=== PATIENT | female | born 1970 | race African-American/Black ===

== ENCOUNTER 2016-09-20 21:17 | Emergency (ER) | payer OTHER ==
[~2016-09-20] VITALS: Ht 167.6 cm; Wt 82.6 kg
[~2016-09-20 21:17] MED LIST: ACET325T53 PO; AMIN30LI2 PO; ASCO500C16 PO; BISA10SU61 RC; CRAN425C PO; DOCU-25 PO; ENOX40DI SUBCUT; IPRA3AMP HHN; IPRA3AMP IH; LACT1CAP72 PO; MAGN400O6 PO; MULT-213 PO; NA P133E RC; PHEN100C4 PO; PHEN60TA11 PO; TRAM50TA92 PO; VORI200T PO; ZINC220C6 PO; ZOLP5TAB2 PO
--- NOTE | 2016-09-20 21:45 | NUR ---
PT BIB PA WITH A C/O FEVER OPTOMETRIC COORDINATOR. PT IS PARAPLEGIC WITH BILATERAL HEEL PROTECTORS. PT HAS A DECUBITUS/PRESSURE SORE ON COCCYX. PT IS AA&O X4.
--- NOTE | 2016-09-20 22:50 | NUR ---
IN AND OUT CATH DONE AT THE BEDSIDE WITH ASSISTANCE FROM CHADWICK SHERWOOD. PT IS CURRENTLY ON HER PERIOD. SMALL BM NOTED. PT WAS CLEANED AND NEW DIAPER APPLIED. PT HAS OPEN DECUBE ON HER COCCYX.
[2016-09-20 23:14] LABS: APPEARANCE,URINE CLOUDY (CLEAR); BILIRUBIN,URINE NEGATIVE (NEGATIVE); BLOOD, URINE 3+ Ery/uL (NEGATIVE); COLOR,URINE YELLOW (YELLOW); KETONES,URINE NEGATIVE (NEGATIVE); LEUKOCYTE ESTERASE ,URINE 3+ (NEGATIVE); NITRITE, URINE POSITIVE (NEGATIVE); PROTEIN,URINE TRACE mg/dl (NEGATIVE); UGLUCOSE NEGATIVE (NEGATIVE); UROBILINOGEN,URINE 0.2 EU/dL (0.2)
[2016-09-20 23:18] LABS: RBC,URINE 21-50 /HPF (0-2)
[2016-09-20 23:19] LABS: ADD URINE CULTURE YES; BACTERIA,URINE 4+ /HPF (None Seen); SQUAMOUS EPITHELIAL CELL,UR Few /HPF (None Seen); WBC,URINE 81-100 /HPF (0-3)
[2016-09-21] MEDS ORDERED: CEFTRIAXONE 1 G VIAL IM ONE
[2016-09-21] MEDS ORDERED: CEFTRIAXONE 1 G VIAL ONE (00:22)
[2016-09-21] MEDS ORDERED: LIDOCAINE /MPF 1% VIAL 5 ML VIAL ONE (00:22)
--- NOTE | 2016-09-21 00:31 | NUR ---
Patient discharged to home in stable condition. Written and verbal after care instructions given. Patient verbalizes understanding of instruction AND RX. PT LEFT VIA AMBULANCE. VSS.
[2016-09-21 00:32] VITALS: BP 91/58
== END 2016-09-21 00:33 | disposition home or self-care (01) ==
LOC: ER 21:18
DX: N39.0 Urinary tract infection, site not specified (principal); G40.909 Epilepsy, unspecified, not intractable, without status epilepticus; G82.20 Paraplegia, unspecified; G82.50 Quadriplegia, unspecified; G89.29 Other chronic pain; D64.9 Anemia, unspecified; F17.200 Nicotine dependence, unspecified, uncomplicated; F10.10 Alcohol abuse, uncomplicated; Z88.6 Allergy status to analgesic agent; Z98.890 Other specified postprocedural states
CPT/HCPCS: 71010-TC; 81000-TC; 87086-TC; 87186-TC; A4606; J0696; J3490; Z7610

== ENCOUNTER 2016-11-30 14:31 | Emergency (ER) | payer OTHER ==
[~2016-11-30] VITALS: Ht 167.6 cm; Wt 68.0 kg
--- NOTE | 2016-11-30 14:40 | NUR ---
JANE FROM [facility] FOR SEIZURE ACITIVTY. PATIENT RECEIVED AWAKE, HOWEVER CONFUSED. APPEARS IN MILD DISTRESS. RESPIRATION EVEN AND UNLABORED. SATING WELL ON ROOMAIR. PATIENT IS AFEBRILE. VSS. SEIZURE PRECATION OBSERVED
[2016-11-30] MEDS ORDERED: LORAZEPAM 1 MG TABLET PO ONE (15:30)
[2016-11-30 15:46] LABS: BASOPHILS # (AUTO) 0.1 /CMM (0.0-0.2); BASOPHILS % (AUTO) 1.7 % (0.0-2.0); EOSINOPHILS % (AUTO) 0.3 % (0.0-6.0); HEMATOCRIT 38 % (33-45); HEMOGLOBIN 12.8 g/dL (11.5-14.8); LYMPHOCYTES # (AUTO) 1.6 /CMM (0.8-4.8); LYMPHOCYTES % (AUTO) 20.9 % (20.0-44.0); MEAN CORPUSCULAR HEMOGLOBIN 31 PG (26.0-33.0); MEAN CORPUSCULAR HGB CONC 33 g/dl (31.0-36.0); MEAN CORPUSCULAR VOLUME 94 fL (82-100); MONOCYTES # (AUTO) 0.2 /CMM (0.1-1.30); NEUTROPHILS # (AUTO) 5.9 /CMM (1.8-8.9); NEUTROPHILS % (AUTO) 74.1 % (43.0-81.0); PLATELET COUNT (AUTO) 258 /CMM (150-450); RDW COEFFICIENT OF VARIATION 13.2 (11.5-15.0); RED BLOOD CELL COUNT(AUTO) 4.09 MIL/uL (4.0-5.2); WHITE BLOOD COUNT (AUTO) 7.8 K/uL (4.3-11.0)
[2016-11-30] MEDS ORDERED: LORAZEPAM 1 MG TABLET ONE (16:01)
[2016-11-30 16:02] LABS: CALCIUM, SERUM 8.5 mg/dL (8.5-10.1); CREATININE 0.5 mg/dL (0.6-1.3); POTASSIUM 3.7 mmol/L (3.5-5.1)
[2016-11-30 16:27] LABS: PHENYTOIN (DILANTIN) 13.1 ug/ml (10.0-20.0)
--- NOTE | 2016-11-30 17:03 | NUR ---
URINE SAMPLE OBTAINED, SENT.
[2016-11-30 17:07] LABS: APPEARANCE,URINE Slightly Cloudy (CLEAR); BILIRUBIN,URINE Negative (NEGATIVE); BLOOD, URINE Moderate Ery/uL (NEGATIVE); COLOR,URINE Yellow (YELLOW); KETONES,URINE Negative (NEGATIVE); LEUKOCYTE ESTERASE ,URINE Moderate (NEGATIVE); NITRITE, URINE Positive (NEGATIVE); PH,URINE 5.5 (5.0-8.0); PROTEIN,URINE Negative (NEGATIVE); UGLUCOSE Negative (NEGATIVE); UROBILINOGEN,URINE 0.2 EU/dL (0.2)
[2016-11-30 17:14] LABS: BACTERIA,URINE Many /HPF (None Seen); SQUAMOUS EPITHELIAL CELL,UR Few /HPF (None Seen); WBC,URINE 81-100 /HPF (0-3)
[2016-11-30] MEDS ORDERED: CEFTRIAXONE 1GM BAG (ER ONLY) 50 ML IV ONE (18:30)
[2016-11-30] MEDS ORDERED: CEFTRIAXONE 1GM BAG (ER ONLY) 1 GM/50 ML PIGGYBACK IV ONE (18:30)
--- NOTE | 2016-11-30 18:36 | NUR ---
CALLED [facility] FOR TRANSPORT BACK TO [facility], ETA 30- 45 MIN
--- NOTE | 2016-11-30 18:44 | NUR ---
RT WRIST #20 IV ACCESS . FOR IV MEDS ADMINISTERED
[2016-11-30 18:45] VITALS: BP 100/41
--- NOTE | 2016-11-30 19:02 | NUR ---
IV removed. Catheter intact and site benign. Pressure and 4x4 applied to site. No bleeding noted. report given to emt med response. vss. pt aware of transfer back to [facility]. pt transfered via gurney with all personal belongings. med response took over care. all d/c paper provided to med response
== END 2016-11-30 19:06 | disposition home or self-care (01) ==
LOC: ER 14:32
DX: G40.909 Epilepsy, unspecified, not intractable, without status epilepticus (principal); N39.0 Urinary tract infection, site not specified; G82.50 Quadriplegia, unspecified; F17.200 Nicotine dependence, unspecified, uncomplicated; G89.29 Other chronic pain; Z88.5 Allergy status to narcotic agent
CPT/HCPCS: 36415; 80048-TC; 80185-TC; 81000-TC; 85025-TC; 87086-TC; 87186-TC; A4606; J0696; Z7610

== ENCOUNTER 2017-01-06 12:26 | Emergency (ER) | payer MEDICAID, OTHER ==
[~2017-01-06] VITALS: Ht 157.5 cm; Wt 77.1 kg
--- NOTE | 2017-01-06 12:45 | NUR ---
[facility]: S/P WITNESSED SEIZURE IN AM -20 SEC. PT AAOX3. VSS. BED BOUND. SEEN BY MD FOR EVAL. SAFETY AND COMFORT MEASURES PROVIDED. WILL MONITOR.
[2017-01-06] MEDS ORDERED: LEVETIRACETAM (500MG) 1,000 MG in IV NS 0.9% 100 ML IV STA (13:15)
[2017-01-06] MEDS ORDERED: LORAZEPAM INJ 2 MG/ML VIAL IV STA (13:15)
[2017-01-06] MEDS ORDERED: LORAZEPAM INJ 2 MG/ML VIAL ONE (13:16)
--- NOTE | 2017-01-06 13:16 | NUR ---
PT NOTED TO BE SEIZING. SZ PRECUATIONS MAINTAINED. MADE AWARE. PT MEDICATED ORDERED.
[2017-01-06 13:21] LABS: BASOPHILS % (AUTO) 0.3 % (0.0-2.0); EOSINOPHILS % (AUTO) 0.7 % (0.0-6.0); HEMATOCRIT 41 % (33-45); HEMOGLOBIN 13.8 g/dL (11.5-14.8); LYMPHOCYTES # (AUTO) 1.3 /CMM (0.8-4.8); LYMPHOCYTES % (AUTO) 19.5 % (20.0-44.0); MEAN CORPUSCULAR HEMOGLOBIN 32 PG (26.0-33.0); MEAN CORPUSCULAR HGB CONC 34 g/dl (31.0-36.0); MEAN CORPUSCULAR VOLUME 95 fL (82-100); MONOCYTES # (AUTO) 0.1 /CMM (0.1-1.30); MONOCYTES % (AUTO) 2.1 % (2.0-12.0); NEUTROPHILS # (AUTO) 5.2 /CMM (1.8-8.9); NEUTROPHILS % (AUTO) 77.4 % (43.0-81.0); PLATELET COUNT (AUTO) 252 /CMM (150-450); RDW COEFFICIENT OF VARIATION 13.9 (11.5-15.0); RED BLOOD CELL COUNT(AUTO) 4.32 MIL/uL (4.0-5.2); WHITE BLOOD COUNT (AUTO) 6.7 K/uL (4.3-11.0)
[2017-01-06 13:32] LABS: ALBUMIN 3.3 g/dL (3.4-5.0); BILIRUBIN,TOTAL 0.2 mg/dL (0.2-1.0); CALCIUM, SERUM 9.3 mg/dL (8.5-10.1); CREATININE 0.4 mg/dL (0.6-1.3); POTASSIUM 3.9 mmol/L (3.5-5.1); TOTAL PROTEIN, SERUM 8.3 g/dL (6.4-8.2)
[2017-01-06] MEDS ORDERED: HYDR-552 PO ×2 (13:49)
[2017-01-06] MEDS ORDERED: MORP15TA PO (13:49)
[2017-01-06] MEDS ORDERED: CHOL100044 PO (13:49)
[2017-01-06] MEDS ORDERED: MULT-659 PO (13:49)
[2017-01-06 14:12] LABS: APPEARANCE,URINE SL CLOUDY (CLEAR); BILIRUBIN,URINE NEGATIVE (NEGATIVE); BLOOD, URINE NEGATIVE Ery/uL (NEGATIVE); COLOR,URINE YELLOW (YELLOW); KETONES,URINE NEGATIVE (NEGATIVE); LEUKOCYTE ESTERASE ,URINE NEGATIVE (NEGATIVE); NITRITE, URINE POSITIVE (NEGATIVE); PH,URINE 6.5 (5.0-8.0); PROTEIN,URINE NEGATIVE (NEGATIVE); UGLUCOSE NEGATIVE (NEGATIVE); UROBILINOGEN,URINE 0.2 EU/dL (0.2)
--- NOTE | 2017-01-06 14:30 | NUR ---
Patient is resting comfortably in bed with eyes closed. Easily aroused. VSS
[2017-01-06 14:43] LABS: BACTERIA,URINE Many /HPF (None Seen); RBC,URINE 0-2 /HPF (0-2)
[2017-01-06 14:44] LABS: SQUAMOUS EPITHELIAL CELL,UR Few /HPF (None Seen)
--- NOTE | 2017-01-06 15:19 | NUR ---
CALLED [facility] FOR BLS TRANSPORT BACK TO [facility]. ETA 40 MINUTES
--- NOTE | 2017-01-06 16:32 | NUR ---
[facility].
[2017-01-06 16:39] VITALS: BP 112/70
== END 2017-01-06 16:40 ==
LOC: ER 12:29
DX: G40.909 Epilepsy, unspecified, not intractable, without status epilepticus (principal); G89.29 Other chronic pain; G82.50 Quadriplegia, unspecified; F17.200 Nicotine dependence, unspecified, uncomplicated; R82.99 Other abnormal findings in urine; Z88.5 Allergy status to narcotic agent
CPT/HCPCS: 36415; 80053; 80185; 81001; 85025; 87077; 87086; 87186; 96365; 96375; 99285; A4606; J1953; J2060; J7030; Z7610; 81000-TC

== ENCOUNTER 2017-03-01 15:06 | Inpatient (IN) | payer MEDICAID, OTHER ==
[~2017-03-01] VITALS: Ht 170.2 cm; Wt 80.7 kg
[~2017-03-01 15:06] MED LIST changes: +CHOL100044 PO; -CRAN425C PO; +HYDR-552 PO; -IPRA3AMP HHN; -IPRA3AMP IH; -LACT1CAP72 PO; +MORP15TA PO; -MULT-213 PO; +MULT-659 PO; -NA P133E RC; -PHEN60TA11 PO; -TRAM50TA92 PO; -VORI200T PO; -ZOLP5TAB2 PO
[2017-03-01] MEDS ORDERED: PIPERACILLIN /TAZOBACTAM 3.375 G in IV D5W 50 ML IV ONE (15:30)
[2017-03-01] MEDS ORDERED: ACETAMINOPHEN ES 500 MG TABLET PO ONE (15:30)
[2017-03-01] MEDS ORDERED: VANCOMYCIN 1 GM in IV D5W 250 ML IV ONE (15:30)
[2017-03-01] MEDS ORDERED: IV NS 0.9% 1,000 ML BAG IV ONE (15:30)
[2017-03-01] MEDS ORDERED: ZIPRASIDONE MESYLATE 20 MG/VIAL VIAL IM ONE ×2 (16:00→17:02)
[2017-03-01] MEDS ORDERED: LORAZEPAM INJ 2 MG/ML VIAL IV ONE (16:00)
[2017-03-01 16:05] LABS: EOSINOPHILS % (AUTO) 0.3 % (0.0-6.0); HEMATOCRIT 40 % (33-45); HEMOGLOBIN 13.4 g/dL (11.5-14.8); LYMPHOCYTES # (AUTO) 1.3 /CMM (0.8-4.8); LYMPHOCYTES % (AUTO) 10.2 % (20.0-44.0); MEAN CORPUSCULAR HEMOGLOBIN 32 PG (26.0-33.0); MEAN CORPUSCULAR HGB CONC 34 g/dl (31.0-36.0); MEAN CORPUSCULAR VOLUME 95 fL (82-100); MONOCYTES # (AUTO) 0.4 /CMM (0.1-1.30); MONOCYTES % (AUTO) 2.9 % (2.0-12.0); NEUTROPHILS # (AUTO) 10.9 /CMM (1.8-8.9); NEUTROPHILS % (AUTO) 86.6 % (43.0-81.0); PLATELET COUNT (AUTO) 175 /CMM (150-450); RDW COEFFICIENT OF VARIATION 12.7 (11.5-15.0); WHITE BLOOD COUNT (AUTO) 12.5 K/uL (4.3-11.0)
[2017-03-01 16:15] LABS: CALCIUM, SERUM 9.1 mg/dL (8.5-10.1); CARBON DIOXIDE 26 mmol/L (21-32); CHLORIDE 102 mmol/L (98-107); CREATININE 0.6 mg/dL (0.6-1.3); GLUCOSE 113 mg/dL (74-106); SODIUM SERUM 137 mmol/L (136-145); UREA NITROGEN, BLOOD 12 mg/dL (7-18)
[2017-03-01] MEDS ORDERED: LEVE500T20 PO (16:16)
[2017-03-01] MEDS ORDERED: HYDR-3026 PO (16:16)
[2017-03-01] MEDS ORDERED: MORP15TA7 PO (16:16)
[2017-03-01] MEDS ORDERED: ARIP5TAB20 PO (16:16)
[2017-03-01 16:21] LABS: POTASSIUM 2.8 mmol/L (3.5-5.1)
[2017-03-01 16:23] LABS: TROPONIN I < 0.017 ng/mL (0.00-0.056)
[2017-03-01 16:24] LABS: INR 0.95 (0.87-1.13); PROTHROMBIN TIME 9.9 SECS (9.5-12.7)
[2017-03-01] MEDS ORDERED: AMIN887L PO (16:25)
[2017-03-01] MEDS ORDERED: POTASSIUM CHLORIDE 20 MEQ TAB.PRT.SR PO ONE ×2 (16:30→17:02)
[2017-03-01 16:31] LABS: ALANINE AMINOTRANSFERASE 54 U/L (12-78); ALKALINE PHOSPHATASE 85 U/L (46-116); ASPARTATE AMINOTRANSFERASE 36 U/L (15-37); BILIRUBIN,DIRECT 0.1 mg/dL (0.0-0.2); BILIRUBIN,TOTAL 0.3 mg/dL (0.2-1.0); TOTAL PROTEIN, SERUM 8.2 g/dL (6.4-8.2)
--- NOTE | 2017-03-01 16:32 | NUR ---
REGINE MIDLINE G 18
--- NOTE | 2017-03-01 16:42 | NUR ---
BED 118-2 TELE
[2017-03-01] MEDS ORDERED: MORPHINE SULFATE PO ×2 (16:45→17:11)
--- NOTE | 2017-03-01 16:51 | NUR ---
PT IS GETTING PIC LINE, ER WILL CALL WHEN READY FOR CT SCAN.
[2017-03-01] MEDS ORDERED: LORAZEPAM INJ 2 MG/ML VIAL ONE (17:02)
[2017-03-01] MEDS ORDERED: ACETAMINOPHEN ES 500 MG TABLET ONE (17:02)
--- NOTE | 2017-03-01 17:08 | NUR ---
REPORT GIVEN TO LESLIE VALENTINE FOR DIOGO
--- NOTE | 2017-03-01 17:24 | NUR ---
PT REFUSES IN/OUT MIN AT THIS TIME. WILL TRY AGAIN LATER
--- NOTE | 2017-03-01 17:38 | NUR ---
INFLUENZA SWAB R NARE OBTAINED, SEND TO LAB.
--- NOTE | 2017-03-01 17:58 | NUR ---
URINE SAMPLE SEND TO LAB
[2017-03-01] MEDS ORDERED: MAG HYDROX/AL HYDROX/SIMETH 30 ML UDC PO PRN (18:00)
[2017-03-01] MEDS ORDERED: BISACODYL SUPP (10 MG) 10 MG/SUPP.RECT SUPP.RECT RC PRN (18:00)
[2017-03-01] MEDS ORDERED: HYDROCODONE/APAP 5/325MG 1 EACH TABLET PO PRN (18:00)
[2017-03-01] MEDS ORDERED: ONDANSETRON HCL/PF 4 MG/2 ML VIAL IVP PRN (18:00)
[2017-03-01] MEDS ORDERED: PIPERACILLIN /TAZOBACTAM 4.5 G in IV D5W 50 ML IV SCH (18:00)
[2017-03-01] MEDS ORDERED: MAGNESIUM HYDROXIDE 30 ML UDC PO PRN (18:00)
[2017-03-01 18:18] LABS: APPEARANCE,URINE Clear (CLEAR); BILIRUBIN,URINE Negative (NEGATIVE); BLOOD, URINE Negative Ery/uL (NEGATIVE); COLOR,URINE Yellow (YELLOW); KETONES,URINE Negative (NEGATIVE); LEUKOCYTE ESTERASE ,URINE Small (NEGATIVE); NITRITE, URINE Positive (NEGATIVE); PROTEIN,URINE Trace mg/dl (NEGATIVE); UGLUCOSE Negative (NEGATIVE); UROBILINOGEN,URINE 0.2 EU/dL (0.2)
[2017-03-01] MEDS ORDERED: FEE PK DOSING 1 MIN EA MC ONE (18:23)
[2017-03-01 18:30] VITALS: BP 96/40
--- NOTE | 2017-03-01 18:45 | NUR ---
RN NOTE RECEIVED PT ON BED FROM ER, AOX3, CALM, NO DISTRESS, NO SOB, SKIN INTACT, SKIN HOT TO TOUCH FEVER 102, BP 96/40 MMHG, JOSR MIDLINE IN PLACE, IVF RUNNING FINISHING UP 3000ML BOLUS. PT HAD A BM, CLEANED, WILL WAIT FOR ADMITTING ORDERS AND ENDORSE TO TRAVELING STOREKEEPER NURSE.
[2017-03-01 18:57] LABS: BACTERIA,URINE Many /HPF (None Seen); RBC,URINE 0-2 /HPF (0-2); SQUAMOUS EPITHELIAL CELL,UR Few /HPF (None Seen)
[2017-03-01 18:58] LABS: URINE AMORPHOUS URATE Few /HPF (None Seen)
[2017-03-01] MEDS: POTASSIUM CL. PREMIX PERIPHER. 50 ML IV SCH ×2 (19:12→21:39)
[2017-03-01] MEDS: IV 1/2NS 1000 ML 1,000 ML IV PRN (19:14)
[2017-03-01] MEDS: PHENYTOIN EXTENDED RELEASE 100 MG CAPSULE PO SCH (19:22)
--- NOTE | 2017-03-01 19:30 | NUR ---
MS/RN NOTES: RECEIVED PATIENT IN BED W/ HOB ELEVATED. A/O X 3. PATIENT IS PARAPLEGIA. NO S/S OF RESPIRATORY DISTRESS NOTED. REGINE MIDLINE PATENT AND INTACT W/ NO S/S OF INFECTION/INFILTRATION NOTED. BILATERAL LOWER EXTREMITIES W/ HELL PROTECTORS ON. CALL LIGHT W/ IN REACH. ALL NEED MEET.
[2017-03-01 20:00] VITALS: BP 103/53
--- NOTE | 2017-03-01 20:00 | NUR ---
MS/RN NOTES: NOTED PT. W/ TEMP OF 102.9. COOLING MEASURES RENDERED. FAN ON. PATIENT REFUSED TO TAKE OFF HER BLANKETS. EXPLAINED THE IMPORTANCE BUT STILL REFUSED. PT. HAS TUSHAR. NORCO GIVEN PER ORDER. WILL RECHECK HER TEMP. CALL LIGHT W/ REACH. WILL CONTINUE TO MONITOR.
[2017-03-01] MEDS: LEVETIRACETAM (250 MG) 250 MG TABLET PO SCH (21:36)
[2017-03-01] MEDS: HYDROCODONE/APAP 5/325MG 1 EACH TABLET PO SCH (21:37)
[2017-03-01] MEDS: PROSTAT (PYXIS) 30 ML UDC PO SCH (22:00)
[2017-03-01] MEDS: PIPERACILLIN /TAZOBACTAM 3.375 G in IV D5W 50 ML IV SCH (23:55)
--- NOTE | 2017-03-02 | NUR ---
MS/RN NOTES: TEMP. RECHECKED 100.6. CONTINUE W/ COOLING MEASURES. ALL DUE MEDS GIVEN PER ORDER. WILL CONTINUE TO MONITOR.
[2017-03-02] MEDS: VANCOMYCIN 0.75 GM in IV D5W 250 ML IV SCH ×2 (00:52→08:34)
[2017-03-02 04:00] VITALS: BP 95/42
--- NOTE | 2017-03-02 07:00 | NUR ---
RN/MS NOTES: PT. IS RESTING IN BED W/ HOB ELEVATED . ALL DUE MEDS GIVEN AND TOLERATED WELL. HAS WOUND ON SACRUM PICTURES DONE. NOT IN ANY ACUTE RESPIRATORY DISTRESS NOTED. T 99.2. REPORT GIVEN TO NEXT SHIFT NURSE TO CONTINUE POC. CALL LIGHT W/ REACH.
--- NOTE | 2017-03-02 07:15 | NUR ---
RN INITIAL NOTES: REC'D PT AWAKE ON BED, NOT IN ANY DISTRESS, A/OX 3, ABLE TO MAKE NEEDS KNOWN, DENIES ANY PAIN/DISCOMFORT. HAS REGINE MIDLINE, PL, PATENT & INTACT W/ NO S/SX OF INFECTION/INFILTRATION NOTED, ON IVF 1/2NS X 75 CC/HR INFUSING WELL. PROVIDED COMFORT & SAFETY MEASURES. BED KEPT LOW & IN LOCKED POS. CALL LIGHT PLACED W/IN REACH. WILL CONTINUE TO MONITOR AND ATTEND PT'S NEEDS.
[2017-03-02] MEDS: PIPERACILLIN /TAZOBACTAM 3.375 G in IV D5W 50 ML IV SCH ×3 (07:54→17:11)
[2017-03-02 08:00] VITALS: BP 105/57
[2017-03-02] MEDS: ENOXAPARIN SODIUM 40 MG/0.4 ML DISP.SYRIN SQ SCH (08:37)
[2017-03-02] MEDS: ASCORBIC ACID 500 MG TABLET PO SCH (08:39)
[2017-03-02] MEDS: MULTIVIT, IRON, MIN NO. 8, FA 1 TAB PO SCH (08:39)
[2017-03-02] MEDS: HYDROCODONE/APAP 5/325MG 1 EACH TABLET PO SCH ×2 (08:39→21:44)
[2017-03-02] MEDS: PHENYTOIN EXTENDED RELEASE 100 MG CAPSULE PO SCH ×3 (08:39→17:11)
[2017-03-02] MEDS: ARIPIPRAZOLE 5 MG TABLET PO SCH (08:39)
[2017-03-02] MEDS: LEVETIRACETAM (250 MG) 250 MG TABLET PO SCH ×2 (08:40→21:44)
[2017-03-02] MEDS: Z GUARD REMEDY 2 OZ OINT TP PRN (08:40)
[2017-03-02 11:00] LABS: BASOPHILS % (AUTO) 0.3 % (0.0-2.0); EOSINOPHILS # (AUTO) 0.1 /CMM (0.0-0.7); EOSINOPHILS % (AUTO) 0.8 % (0.0-6.0); HEMATOCRIT 32 % (33-45); LYMPHOCYTES % (AUTO) 23.3 % (20.0-44.0); MEAN CORPUSCULAR HEMOGLOBIN 32 PG (26.0-33.0); MEAN CORPUSCULAR HGB CONC 34 g/dl (31.0-36.0); MEAN CORPUSCULAR VOLUME 94 fL (82-100); MONOCYTES # (AUTO) 0.6 /CMM (0.1-1.30); MONOCYTES % (AUTO) 6.8 % (2.0-12.0); NEUTROPHILS # (AUTO) 5.8 /CMM (1.8-8.9); NEUTROPHILS % (AUTO) 68.8 % (43.0-81.0); PLATELET COUNT (AUTO) 171 /CMM (150-450); RED BLOOD CELL COUNT(AUTO) 3.44 MIL/uL (4.0-5.2); WHITE BLOOD COUNT (AUTO) 8.4 K/uL (4.3-11.0)
--- NOTE | 2017-03-02 11:10 | NUR ---
RN NOTES: PT SEEN & EXAMINED BY DR. HERNANDEZ.
[2017-03-02 11:17] LABS: ALBUMIN 2.3 g/dL (3.4-5.0); BILIRUBIN,TOTAL 0.4 mg/dL (0.2-1.0); CALCIUM, SERUM 8.5 mg/dL (8.5-10.1); CREATININE 0.4 mg/dL (0.6-1.3); MAGNESIUM 1.6 mg/dL (1.8-2.4); PHOSPHORUS 2.5 mg/dL (2.5-4.9); TOTAL PROTEIN, SERUM 6.7 g/dL (6.4-8.2)
[2017-03-02 11:45] LABS: POTASSIUM 2.7 mmol/L (3.5-5.1)
[2017-03-02] MEDS: POTASSIUM CL. PREMIX PERIPHER. 50 ML IV SCH ×8 (12:43→21:45)
[2017-03-02] MEDS: IV 1/2NS 1000 ML 1,000 ML IV PRN (13:28)
[2017-03-02 16:00] VITALS: BP 95/51
--- NOTE | 2017-03-02 16:00 | NUR ---
RN NOTES: PT FEBRILE, 103`F. REFERRED TO DR. HERNANDEZ. PER , ID ALREADY NOTIFIED. ORDERED TO DO BLOOD CULTURE X2.
[2017-03-02] MEDS: ACETAMINOPHEN 325 MG TABLET PO PRN (17:11)
[2017-03-02] MEDS ORDERED: MINERAL OIL 133 ML (PYXIS) 1 EA ENEMA RC ONE (18:30)
[2017-03-02] MEDS: DOCUSATE SODIUM 100 MG CAPSULE PO SCH (18:30)
[2017-03-02] MEDS: VANCOMYCIN 1 GM in IV D5W 250 ML IV SCH (18:51)
--- NOTE | 2017-03-02 19:00 | NUR ---
RN CLOSING NOTES: PT STILL IS FEBRILE, WARM TO TOUCH. COOLING MEASURES PROVIDED. PT SEEN & EXAMINED BY BRANDAN FRAGA W/ ORDERS MADE & CARRIED OUT. BLADDER SCAN DONE, NOTED >300ML URINE. MIN CATHETER INSERTED BUT PT ABLE TO URINATE. BLADDER SCAN DONE AGAIN W/ <100ML URINE. MALCOLMA MADE AWARE W/ ORDERS NO NEED TO INSERT FC AT THIS TIME. BRANDAN FRAGA MADE AWARE ALSO THAT PT HAD 4X BM (LOOSE, WATERY). PT REFUSING TO TAKE COLACE & ENEMA ORDERED. REGINE MIDLINE, PL, KEPT PATENT & INTACT W/ NO S/SX OF INFECTION/INFILTRATION NOTED, ON IVF 1/2NS X 75 CC/HR INFUSING WELL. KEPT WELL RESTED. NEEDS ATTENDED. BED KEPT LOW & IN LOCKED POS. CALL LIGHT PLACED W/IN REACH. ENDORSED TO PM RN FOR DIOGO AND TO GIVE LAST BAG OF POTASSIUM.
[2017-03-02 20:00] VITALS: BP 82/51
[2017-03-02] MEDS: MEROPENEM 500 MG in IV NS 0.9% 50 ML IV SCH (20:08)
[2017-03-02] MEDS: hydrOXYzine PAMOATE 25 MG CAPSULE PO PRN (21:44)
[2017-03-02] MEDS: PROSTAT (PYXIS) 30 ML UDC PO SCH (21:46)
[2017-03-02] MEDS ORDERED: BISACODYL (5 MG) 5 MG TABLET.DR PO PRN (22:00)
[2017-03-03] MEDS: VANCOMYCIN 1 GM in IV D5W 250 ML IV SCH ×3 (01:23→18:50)
[2017-03-03] MEDS: MEROPENEM 500 MG in IV NS 0.9% 50 ML IV SCH ×3 (04:00→20:43)
--- NOTE | 2017-03-03 07:20 | NUR ---
RN INITIAL NOTES: REC'D PT AWAKE ON BED, NOT IN ANY DISTRESS, A/OX 3, ABLE TO MAKE NEEDS KNOWN, DENIES ANY PAIN/DISCOMFORT. HAS REGINE MIDLINE, PL, PATENT & INTACT W/ NO S/SX OF INFECTION/INFILTRATION NOTED, ON IVF 1/2NS X 75 CC/HR INFUSING WELL. PT VERBALIZED THAT SHE IS STILL HAVING DIARRHEA. PROVIDED COMFORT & SAFETY MEASURES. BED KEPT LOW & IN LOCKED POS. CALL LIGHT PLACED W/IN REACH. WILL CONTINUE TO MONITOR AND ATTEND PT'S NEEDS.
[2017-03-03 08:00] VITALS: BP 93/59
[2017-03-03 08:48] VITALS: BP 93/54
[2017-03-03] MEDS: DOCUSATE SODIUM 100 MG CAPSULE PO SCH ×2 (09:00→17:00)
[2017-03-03] MEDS: PHENYTOIN EXTENDED RELEASE 100 MG CAPSULE PO SCH ×3 (09:32→17:24)
[2017-03-03] MEDS: LEVETIRACETAM (250 MG) 250 MG TABLET PO SCH ×2 (09:32→20:44)
[2017-03-03] MEDS: ASCORBIC ACID 500 MG TABLET PO SCH (09:32)
[2017-03-03] MEDS: ARIPIPRAZOLE 5 MG TABLET PO SCH (09:32)
[2017-03-03] MEDS: MULTIVIT, IRON, MIN NO. 8, FA 1 TAB PO SCH (09:33)
[2017-03-03] MEDS: HYDROCODONE/APAP 5/325MG 1 EACH TABLET PO SCH ×2 (09:33→20:44)
[2017-03-03] MEDS: ENOXAPARIN SODIUM 40 MG/0.4 ML DISP.SYRIN SQ SCH (09:39)
[2017-03-03] MEDS: Z GUARD REMEDY 2 OZ OINT TP PRN (09:39)
[2017-03-03 11:15] LABS: CALCIUM, SERUM 8.8 mg/dL (8.5-10.1); CREATININE 0.5 mg/dL (0.6-1.3); POTASSIUM 3.1 mmol/L (3.5-5.1)
--- NOTE | 2017-03-03 12:53 | NUR ---
WOUND CARE CONSULT PATIENT SEEN AND SKIN INTEGRITY ASSESSMENT DONE PATIENT PRESENTS WITH HEALING STAGE 4 PRESSURE ULCER AND LEFT ANKLE SCARRING BOTH POA. SEE INSTALLATION SPECIALIST ASSESSMENT IN [facility] FOR TODAY ALONG WITH ALL RECOMMENDATIONS. PATIENT ON ISOFLEX LOW AIRLOSS SPECIALTY BED FOR [facility], RECOMMEND CONTINUE TURNING Q 2 HOURS PATIENT CONDITION PERMITS, BILATERAL HEEL FLOATING AND OFF LOADING OF THE ANKLES. CONTINUE Z GUARD FOR SKIN/MOISTURE MANAGEMENT. PATIENT WITH CURRENT BILL AT 13. ALL SKIN MANAGEMENT DISCUSSED WITH NURSING AT THE BEDSIDE AND ALSO WITH PATIENT AND PATIENT IN AGREEMENT. MD IN AGREEMENT WITH PLAN OF CARE. Addendum: 03/03/17 at 1307 by KONG DELACRUZ WNDNU INSTALLATION SPECIALIST ADDENDUM RECOMMEND SURGICAL CONSULT FOR HEALING STAGE 4 PRESSURE ULCER POA
[2017-03-03] MEDS ORDERED: HYDROGEL DRESSING 90 GM TUBE TP PRN ×2 (13:00)
[2017-03-03] MEDS ORDERED: POTASSIUM CHLORIDE 20 MEQ TAB.PRT.SR PO ONE (13:00)
[2017-03-03] MEDS: HYDROGEL DRESSING 90 GM TUBE TP SCH (13:29)
[2017-03-03] MEDS: POTASSIUM CHLORIDE 20 MEQ TAB.PRT.SR PO SCH ×2 (15:54→17:24)
[2017-03-03 16:00] VITALS: BP 91/59
[2017-03-03] MEDS ORDERED: NA PHOS,M-B/NA PHOS,DI-BA 1 EA ENEMA RC ONE (17:30)
--- NOTE | 2017-03-03 17:30 | NUR ---
RN NOTES: PT SEEN & EXAMINED BY BRANDAN FRAGA W/ ORDERS TO GIVE FLEET ENEMA X1. MANAGER GARDEN FURTHER EXPLAINED THE IMPORTANCE OF THIS MEDICATION TO THE PT PT WAS REFUSING THIS BEFORE. PT VERBALIZED UNDERSTANDING.
--- NOTE | 2017-03-03 19:09 | NUR ---
RN CLOSING NOTES: NO ACUTE CHANGES NOTED W/IN SHIFT. PT STILL IS AFEBRILE. PT TOLERATED ROOM AIR W/ NO SOB. FLEET ENEMA GIVEN X1 ORDERED. REGINE MIDLINE, PL, KEPT PATENT & INTACT W/ NO S/SX OF INFECTION/INFILTRATION NOTED, ON IVF 1/2NS X 75 CC/HR INFUSING WELL. KEPT WELL RESTED. NEEDS ATTENDED. BED KEPT LOW & IN LOCKED POS. CALL LIGHT PLACED W/IN REACH. WILL ENDORSE TO PM RN FOR DIOGO.
--- NOTE | 2017-03-03 19:35 | NUR ---
MS RN INITIAL NOTE PT RECEIVED IN BED. A/O X3 AND ABLE TO MAKE NEEDS KNOWN. ON ROOM AIR AND SATURATING 95%. BREATHING EVEN, REGULAR AND UNLABORED. IV REGINE MIDLINE PATENT, DRY AND FLUSHING WELL WITH FLUIDS RUNNING. CALL LIGHT WITHIN REACH AT ALL TIMES. WILL CONTINUE TO MONITOR.
[2017-03-03 20:00] VITALS: BP 101/67
[2017-03-03] MEDS: hydrOXYzine PAMOATE 25 MG CAPSULE PO PRN (20:45)
[2017-03-03] MEDS: PROSTAT (PYXIS) 30 ML UDC PO SCH (22:00)
[2017-03-04] MEDS: IV 1/2NS 1000 ML 1,000 ML IV PRN ×2 (01:04→18:25)
[2017-03-04] MEDS: VANCOMYCIN 1 GM in IV D5W 250 ML IV SCH ×3 (01:05→17:27)
[2017-03-04] MEDS: MEROPENEM 500 MG in IV NS 0.9% 50 ML IV SCH ×3 (03:32→20:28)
[2017-03-04 04:00] VITALS: BP 97/61
[2017-03-04 07:01] LABS: CREATININE 0.4 mg/dL (0.6-1.3); POTASSIUM 3.8 mmol/L (3.5-5.1)
--- NOTE | 2017-03-04 07:06 | NUR ---
MS RN CLOSING NOTE NO ACUTE DISTRESS NOTED. ON ROOM AIR. ALL NEEDS ATTENDED TO AND MET PROMPTLY. KEPT CLEAN AND DRY. IV IN PLACE WITH FLUIDS RUNNING. ALL DUE MEDS GIVEN ORDERED AND WELL TOLERATED. CALL LIGHT WITHIN REACH. WILL ENDORSE TO NEXT SHIFT FOR CONTINUITY OF CARE.
--- NOTE | 2017-03-04 07:18 | NUR ---
RN INITIAL NOTES: REC'D PT ASLEEP ON BED, NOT IN ANY DISTRESS, A/OX 3, ABLE TO MAKE NEEDS KNOWN, DENIES ANY PAIN/DISCOMFORT. HAS REGINE MIDLINE, PL, PATENT & INTACT W/ NO S/SX OF INFECTION/INFILTRATION NOTED, ON IVF 1/2NS X 75 CC/HR INFUSING WELL. PROVIDED COMFORT & SAFETY MEASURES. BED KEPT LOW & IN LOCKED POS. CALL LIGHT PLACED W/IN REACH. WILL CONTINUE TO MONITOR AND ATTEND PT'S NEEDS.
[2017-03-04 08:00] VITALS: BP 103/55
[2017-03-04] MEDS: LEVETIRACETAM (250 MG) 250 MG TABLET PO SCH ×2 (08:45→20:28)
[2017-03-04] MEDS: DOCUSATE SODIUM 100 MG CAPSULE PO SCH ×2 (08:45→17:27)
[2017-03-04] MEDS: ARIPIPRAZOLE 5 MG TABLET PO SCH (08:45)
[2017-03-04] MEDS: MULTIVIT, IRON, MIN NO. 8, FA 1 TAB PO SCH (08:45)
[2017-03-04] MEDS: ASCORBIC ACID 500 MG TABLET PO SCH (08:45)
[2017-03-04] MEDS: PHENYTOIN EXTENDED RELEASE 100 MG CAPSULE PO SCH ×3 (08:45→17:27)
[2017-03-04] MEDS: Z GUARD REMEDY 2 OZ OINT TP PRN (08:46)
[2017-03-04] MEDS: HYDROGEL DRESSING 90 GM TUBE TP SCH (08:46)
[2017-03-04] MEDS: HYDROCODONE/APAP 5/325MG 1 EACH TABLET PO SCH ×2 (08:46→20:28)
[2017-03-04] MEDS: ENOXAPARIN SODIUM 40 MG/0.4 ML DISP.SYRIN SQ SCH (08:48)
--- NOTE | 2017-03-04 10:15 | NUR ---
RN NOTES: PT SEEN & EXAMINED BY DR. HERNANDEZ.
[2017-03-04 14:00] VITALS: BP 90/52
[2017-03-04] MEDS: HYDROCODONE/APAP 5/325MG 1 EACH TABLET PO PRN (14:47)
[2017-03-04 16:00] VITALS: BP 90/52
--- NOTE | 2017-03-04 17:04 | NUR ---
RN NOTES: PHILLY GIPSON MADE AWARE OF TEMP 101 W/ ORDERS TO DO REPEAT BLOOD CULTURE X2. PT REFUSED COOLING MEASURES DESPITE OF EXPLANATION.
--- NOTE | 2017-03-04 17:49 | NUR ---
RN NOTES: PT SEEN & EXAMINED BY BRANDAN FRAGA.
--- NOTE | 2017-03-04 18:37 | NUR ---
RN NOTES: SPOKE W/ THE PT RE: URINE COLLECTION. PER PT SHE CAN FEEL THAT SHE IS URINATING BUT DOESN'T HAVE THE URGE. ASKED IF RN CAN INSERT A STRAIGHT FC TO COLLECT FOR URINE, SHE VERBALIZED THAT SHE JUST URINATED AND DOESN'T WANT TO BE CHANGE OR DO STRAIGHT FC AT THIS TIME.
--- NOTE | 2017-03-04 19:30 | NUR ---
MS RN INITIAL NOTE PT RECEIVED IN BED. A/O X3 AND ABLE TO MAKE NEEDS KNOWN. ON ROOM AIR AND SATURATING 96%. BREATHING EVEN, REGULAR AND UNLABORED. IV REGINE MIDLINE PATENT, DRY AND FLUSHING WELL WITH FLUIDS RUNNING. INFORMED PT OF THE NEED TO COLLECT URINE FROM HER PER MD ORDER AND SHE VERBALIZED TO DO IT LATER BECAUSE SHE DOES NOT NEED TO URINATE AT THIS TIME. PT ENCOURAGED TO USE CALL LIGHT WHEN IN NEED TO URINATE. CALL LIGHT WITHIN REACH AT ALL TIMES. WILL CONTINUE TO MONITOR.
[2017-03-04 20:00] VITALS: BP 94/50
[2017-03-04] MEDS: hydrOXYzine PAMOATE 25 MG CAPSULE PO PRN (20:28)
[2017-03-04] MEDS: PROSTAT (PYXIS) 30 ML UDC PO SCH (21:48)
--- NOTE | 2017-03-04 21:48 | NUR ---
MS RN NOTE PT REFUSED PROSTAT YESTERDAY AND TONIGHT. EXPLAINED RISKS AND BENEFITS AND PT STILL REFUSED SAYING SHE DOESN'T LIKE THE TASTE AND DOESN'T WANT IT. WILL ENDORSE TO NEXT SHIFT.
[2017-03-05] MEDS: VANCOMYCIN 1 GM in IV D5W 250 ML IV SCH ×3 (01:11→16:43)
[2017-03-05 04:00] VITALS: BP 90/52
[2017-03-05] MEDS: MEROPENEM 500 MG in IV NS 0.9% 50 ML IV SCH ×3 (04:07→20:48)
--- NOTE | 2017-03-05 06:48 | NUR ---
MS RN CLOSING NOTE PT REMAINED STABLE DURING SHIFT. AFEBRILE THIS MORNING AND NO C/O DISCOMFORT NOTED. KEPT CLEAN AND DRY AT ALL TIMES. URINE COLLECTED ORDERED AND PICKED UP BY LAB. IV IN PLACE. CALL LIGHT WITHIN REACH. WILL ENDORSE TO NEXT SHIFT FOR CONTINUITY OF CARE.
--- NOTE | 2017-03-05 07:00 | NUR ---
RN OPEN NOTES RECEIVED REPORT FROM SUPERVISOR ASBESTOS REMOVAL NURSE. WILL CONTINUE TO MONITOR AND ASSESS PATIENT THROUGH OUT MY SHIFT
[2017-03-05 08:00] VITALS: BP_SYST 140; BP_SYST 87; BP_SYST 88; BP_DIAS 100; BP_DIAS 56; BP_DIAS 59
[2017-03-05] MEDS: DOCUSATE SODIUM 100 MG CAPSULE PO SCH ×2 (08:08→15:59)
[2017-03-05] MEDS: LEVETIRACETAM (250 MG) 250 MG TABLET PO SCH ×2 (08:08→20:59)
[2017-03-05] MEDS: HYDROCODONE/APAP 5/325MG 1 EACH TABLET PO SCH ×2 (08:08→20:59)
[2017-03-05] MEDS: PHENYTOIN EXTENDED RELEASE 100 MG CAPSULE PO SCH ×3 (08:09→15:59)
[2017-03-05] MEDS: MULTIVIT, IRON, MIN NO. 8, FA 1 TAB PO SCH (08:09)
[2017-03-05] MEDS: ARIPIPRAZOLE 5 MG TABLET PO SCH (08:09)
[2017-03-05] MEDS: ASCORBIC ACID 500 MG TABLET PO SCH (08:09)
[2017-03-05] MEDS: HYDROGEL DRESSING 90 GM TUBE TP SCH (08:10)
[2017-03-05] MEDS: ENOXAPARIN SODIUM 40 MG/0.4 ML DISP.SYRIN SQ SCH (08:14)
--- NOTE | 2017-03-05 08:15 | NUR ---
CLAUDIA HELD DUE TO LOW BLOOD PRESSURE. 88/56 ENCOURAGED PATIENT TO DRINK AND EAT BREAKFAST. WILL RECHECK BP IN 30 MIN
[2017-03-05 08:52] LABS: BASOPHILS # (AUTO) 0.1 /CMM (0.0-0.2); BASOPHILS % (AUTO) 1.3 % (0.0-2.0); EOSINOPHILS # (AUTO) 0.1 /CMM (0.0-0.7); EOSINOPHILS % (AUTO) 1.5 % (0.0-6.0); HEMATOCRIT 33 % (33-45); LYMPHOCYTES # (AUTO) 1.8 /CMM (0.8-4.8); LYMPHOCYTES % (AUTO) 28.3 % (20.0-44.0); MEAN CORPUSCULAR HEMOGLOBIN 32 PG (26.0-33.0); MEAN CORPUSCULAR HGB CONC 33 g/dl (31.0-36.0); MEAN CORPUSCULAR VOLUME 95 fL (82-100); MONOCYTES # (AUTO) 0.3 /CMM (0.1-1.30); MONOCYTES % (AUTO) 4.5 % (2.0-12.0); NEUTROPHILS # (AUTO) 4.2 /CMM (1.8-8.9); NEUTROPHILS % (AUTO) 64.4 % (43.0-81.0); PLATELET COUNT (AUTO) 290 /CMM (150-450); RED BLOOD CELL COUNT(AUTO) 3.48 MIL/uL (4.0-5.2); WHITE BLOOD COUNT (AUTO) 6.5 K/uL (4.3-11.0)
--- NOTE | 2017-03-05 09:00 | NUR ---
RECHECKED BLOOD PRESSURE. 89/57
[2017-03-05 09:10] LABS: CALCIUM, SERUM 8.8 mg/dL (8.5-10.1); CREATININE 0.5 mg/dL (0.6-1.3); POTASSIUM 3.6 mmol/L (3.5-5.1)
--- NOTE | 2017-03-05 09:31 | NUR ---
RADIOLOGY AT BEDSIDE
[2017-03-05] MEDS: IV 1/2NS 1000 ML 1,000 ML IV PRN (09:37)
--- NOTE | 2017-03-05 09:38 | NUR ---
BLOOD PRESSURE 83/88
--- NOTE | 2017-03-05 09:40 | NUR ---
DRESSING CHANGE COMPLETED PER HOSPITAL POLICY AND WOUND CARE INSTRUCTIONS
--- NOTE | 2017-03-05 09:55 | NUR ---
DR SHAIKH AT BEDSIDE. LOW BLOOD PRESSURE DISCUSSED WITH MD AND NEW ORDERS RECEIVED
[2017-03-05] MEDS ORDERED: IV NS 0.9% 500 ML BAG IV ONE (10:30)
[2017-03-05] MEDS: HYDROCODONE/APAP 5/325MG 1 EACH TABLET PO PRN (11:55)
[2017-03-05 16:00] VITALS: BP 91/48
--- NOTE | 2017-03-05 16:19 | NUR ---
PATIENT TEMP 100.8. ANTOLIN FRAGA PBX SUPERVISOR MADE AWARE
[2017-03-05] MEDS: ACETAMINOPHEN 325 MG TABLET PO PRN (16:39)
--- NOTE | 2017-03-05 16:45 | NUR ---
ADMINISTERED TYLENOL FOR FEVER
--- NOTE | 2017-03-05 18:15 | NUR ---
RECHECK TEMP: 99.5
--- NOTE | 2017-03-05 18:29 | NUR ---
RN CLOSING NOTE PATIENT IS IN BED, ALERT AND ORIENTED TO NAME, PLACE AND TIME. PATIENT REMAINED STABLE DURING THE SHIFT. FEVER OF 100.8 AT 1600, TYLENOL ADMINISTERED, RECHECKED TEMP AT 1815, 99.5. BOLUS OF 500ML WAS GIVEN TO INCREASE BP. DRESSING CHANGE COMPLETED PER HOSPITAL POLICY AND WOUND CARE INSTRUCTION. NO SIGNS AND SYMPTOMS OF DISTRESS. MIDLINE IS INTACT AND PATENT, CURRENTLY INFUSING AT 75ML/HR. ALL SAFETY MEASURES IN PLACE; BED IN LOW POSITION, LOCKED AND TWO SIDE RAILS ARE UP, CALL LIGHT WITHIN REACH. ALL NURSING CARE ANTICIPATED AND ALL NEEDS ATTENDED. PT EVAL - PENDING. AM LABS. WILL ENDORSE TO SQUEAK RATTLE AND LEAK REPAIRER RN FOR CONTINUITY OF CARE.
[2017-03-05 20:00] VITALS: BP 92/52
[2017-03-05] MEDS: hydrOXYzine PAMOATE 25 MG CAPSULE PO PRN (21:11)
[2017-03-05] MEDS: PROSTAT (PYXIS) 30 ML UDC PO SCH (22:07)
[2017-03-06] MEDS: VANCOMYCIN 1 GM in IV D5W 250 ML IV SCH ×2 (01:04→09:35)
[2017-03-06] MEDS: IV 1/2NS 1000 ML 1,000 ML IV PRN (02:52)
[2017-03-06 04:00] VITALS: BP 92/58
[2017-03-06] MEDS: MEROPENEM 500 MG in IV NS 0.9% 50 ML IV SCH ×2 (04:06→12:52)
[2017-03-06 06:00] VITALS: BP 92/58
--- NOTE | 2017-03-06 07:05 | NUR ---
RN CLOSING NOTES RESTING COMFORTABLY IN BED WITH NO DISTRESS NOTED. COMPLAINING OF PAIN. NO SHORTNESS OF BREATH. NO SIGNIFICANT CHANGE OF CONDITION. WILL ENDORSE TO AM SHIFT FOR CONTINUITY OF CARE
[2017-03-06 07:14] LABS: BASOPHILS % (AUTO) 0.5 % (0.0-2.0); EOSINOPHILS # (AUTO) 0.1 /CMM (0.0-0.7); EOSINOPHILS % (AUTO) 1.8 % (0.0-6.0); HEMATOCRIT 34 % (33-45); HEMOGLOBIN 11.6 g/dL (11.5-14.8); LYMPHOCYTES # (AUTO) 1.9 /CMM (0.8-4.8); LYMPHOCYTES % (AUTO) 29.9 % (20.0-44.0); MEAN CORPUSCULAR HEMOGLOBIN 32 PG (26.0-33.0); MEAN CORPUSCULAR HGB CONC 34 g/dl (31.0-36.0); MEAN CORPUSCULAR VOLUME 94 fL (82-100); MONOCYTES # (AUTO) 0.5 /CMM (0.1-1.30); NEUTROPHILS # (AUTO) 3.7 /CMM (1.8-8.9); NEUTROPHILS % (AUTO) 59.8 % (43.0-81.0); PLATELET COUNT (AUTO) 346 /CMM (150-450); RED BLOOD CELL COUNT(AUTO) 3.64 MIL/uL (4.0-5.2); WHITE BLOOD COUNT (AUTO) 6.2 K/uL (4.3-11.0)
[2017-03-06 07:35] LABS: CALCIUM, SERUM 9.3 mg/dL (8.5-10.1); CREATININE 0.4 mg/dL (0.6-1.3); MAGNESIUM 1.8 mg/dL (1.8-2.4); POTASSIUM 3.8 mmol/L (3.5-5.1)
[2017-03-06 08:00] VITALS: BP 95/53
[2017-03-06] MEDS: PHENYTOIN EXTENDED RELEASE 100 MG CAPSULE PO SCH ×2 (08:35→12:52)
[2017-03-06] MEDS: LEVETIRACETAM (250 MG) 250 MG TABLET PO SCH (08:35)
[2017-03-06] MEDS: ENOXAPARIN SODIUM 40 MG/0.4 ML DISP.SYRIN SQ SCH (08:35)
[2017-03-06] MEDS: HYDROCODONE/APAP 5/325MG 1 EACH TABLET PO SCH (08:36)
[2017-03-06] MEDS: DOCUSATE SODIUM 100 MG CAPSULE PO SCH (08:37)
[2017-03-06] MEDS: MULTIVIT, IRON, MIN NO. 8, FA 1 TAB PO SCH (08:37)
[2017-03-06] MEDS: ASCORBIC ACID 500 MG TABLET PO SCH (08:37)
[2017-03-06] MEDS: HYDROGEL DRESSING 90 GM TUBE TP SCH (08:39)
[2017-03-06] MEDS: ARIPIPRAZOLE 5 MG TABLET PO SCH (08:52)
[2017-03-06] MEDS ORDERED: Hydrogel Dressing TP (08:53)
[2017-03-06] MEDS ORDERED: MERO500V IV (08:53)
[2017-03-06] MEDS ORDERED: RXVAN XX (08:53)
[2017-03-06] MEDS: HYDROCODONE/APAP 5/325MG 1 EACH TABLET PO PRN (13:21)
--- NOTE | 2017-03-06 15:22 | NUR ---
DISCHARGE NOTE GAVE REPORT TO BENJAMIN AT [facility]. PATIENT STATED SHE SPOKE TO HER OLDER DAUGHTER ABOUT HER TRANSFER- FAMILY AWARE. IV TO STAY WITH PATIENT- REGINE MIDLINE- C/D/I- BENJAMIN AWARE- TO CONTINUE MERREM AND VANCO- INSTRUCTIONS IN D/C PACKET. EDUCATION, MED LIST AND HOSPITAL SUMMARY NOTES AND LAB RESULTS IN CHART, REVIEWED WITH PATIENT. SHE VERBALIZED UNDERSTANDING. PATIENT CLEANED BEFORE DISCHARGE. WOUND PHOTOS IN CHART FROM LAST NIGHT <24HRS. BELONGINGS LIST SIGNED AND CONFIRMED HAVING ALL. PT. DENIES FLU AND PNEUMONIA VACCINES AFTER EDUCATION PROVIDED. DENG @ [facility] AWARE OF SBP 87-92. PATIENT LEFT VIA GURNEY IN STABLE CONDITION ACCOMPANIED BY 2 EMT AND A MILIEU MANAGER. LOC WNL.
== END 2017-03-06 15:22 | DRG 720 ==
LOC: ER 15:10 → TELE1 17:26 → MEDSG1 19:36
PROVIDERS: ADMIT Internal Medicine; ATTEND Internal Medicine
PROC: 05H533Z Insertion of Infusion Device into Right Subclavian Vein, Percutaneous Approach (ICD-10-PCS; principal; 2017-03-01)
DX: A41.9 Sepsis, unspecified organism (principal); J69.0 Pneumonitis due to inhalation of food and vomit; E43 Unspecified severe protein-calorie malnutrition; R53.2 Functional quadriplegia; B96.20 Unspecified Escherichia coli [E. coli] as the cause of diseases classified elsewhere; E78.5 Hyperlipidemia, unspecified; E66.9 Obesity, unspecified; E87.6 Hypokalemia; I10 Essential (primary) hypertension; G40.909 Epilepsy, unspecified, not intractable, without status epilepticus; J45.909 Unspecified asthma, uncomplicated; K21.9 Gastro-esophageal reflux disease without esophagitis; N39.0 Urinary tract infection, site not specified; Z86.73 Personal history of transient ischemic attack (TIA), and cerebral infarction without residual deficits; E88.09 Other disorders of plasma-protein metabolism, not elsewhere classified; K56.41 Fecal impaction; Z68.27 Body mass index [BMI] 27.0-27.9, adult; N31.9 Neuromuscular dysfunction of bladder, unspecified; E03.9 Hypothyroidism, unspecified; F20.9 Schizophrenia, unspecified; Z79.899 Other long term (current) drug therapy
CPT/HCPCS: 36415; 36569; 71010-TC; 74000-TC; 80048-TC; 80053-TC; 80061-TC; 80076-TC; 80202-TC; 81000-TC; 83605-TC; 83735-TC; 84100-TC; 84484-TC; 85025-TC; 85730-TC; 87040-TC; 87086-TC; 87186-TC; 87400; A4216; A4606; A6248; J1650; J2060; J2185; J2543; J3370; J3480; J3486; J3490; J7030; J7040; J7060; Q0177; Z7610